=== PATIENT | male | born 1975 | race Asian ===

== ENCOUNTER 2016-11-12 20:14 | Emergency (ER) | payer MEDICAID ==
[~2016-11-12] VITALS: Ht 177.8 cm; Wt 83.9 kg
[2016-11-12 20:19] VITALS: BP 139/95; PULSE 122; RESP 20; TEMP 98.7; O2SAT 96
--- NOTE | 2016-11-12 20:25 | NUR ---
Patient to ER bed 3 to gown for evaluation. Side rails up. Report given to Jada PALUMBO.
--- NOTE | 2016-11-12 20:29 | NUR ---
Patient states that he had a fever 3 days ago, started to have swelling on the left side of neck with difficulty swallowing and pain. Swelling noted to left side of neck. Pain 10/10. Patient states its hard for him to take a deep breath. No other complaints/injuries per patient or as noted
--- NOTE | 2016-11-12 20:48 | NUR ---
ER at bedside examining patient.
[2016-11-12] MEDS ORDERED: KETOROLAC TROMETHAMINE 30 MG VIAL IVP ONE (21:00)
[2016-11-12] MEDS ORDERED: cefTRIAXone 2 GM VIAL ONE (21:00)
[2016-11-12] MEDS ORDERED: NACL 0.9% 1,000 ML IV ONE (21:00)
[2016-11-12 22:51] VITALS: BP 136/78; PULSE 86; RESP 19; TEMP 98.7; O2SAT 98
--- NOTE | 2016-11-12 22:51 | NUR ---
Patient given written and verbal discharge instructions and verbalizes understanding. ER MD discussed with patient the results and treatment provided. Patient in stable condition. ID arm band removed. IV catheter removed intact and dressing applied, no active bleeding. Rx of Naprosyn and augmentin given. Patient educated on pain management and to follow up with PMD in 2 days. Pain Scale 4/10 Opportunity for questions provided and answered.
== END 2016-11-12 22:51 | disposition home or self-care (01) ==
LOC: SED 20:14
DX: J02.9 Acute pharyngitis, unspecified (principal)
CPT/HCPCS: 96365; 96375; 99284; J0696; J1885; J7030; J7060

== ENCOUNTER 2016-11-15 04:15 | Emergency (ER) | payer MEDICAID ==
[~2016-11-15] VITALS: Ht 177.8 cm; Wt 81.6 kg
[2016-11-15 04:15] VITALS: BP_SYST 136
[2016-11-15] MEDS ORDERED: CLINDAMYCIN 900 MG in D5W 100 ML IV ONE (05:30)
[2016-11-15] MEDS ORDERED: ONDANSETRON HCL 4 MG/2 ML VIAL IVP ONE (05:30)
[2016-11-15] MEDS ORDERED: HYDROmorphone 1 MG INJ. 1 MG/ML AMPUL IVP ONE ×2 (05:30→06:15)
[2016-11-15 05:39] LABS: BASOPHILS # (AUTO) 0.1 K/uL (0.0-0.2); BASOPHILS % (AUTO) 0.5 % (0.0-2.0); EOSINOPHILS # (AUTO) 0.2 K/uL (0.0-0.4); EOSINOPHILS % (AUTO) 1.5 % (0.0-4.0); HEMATOCRIT 41.8 % (36-54); HEMOGLOBIN 13.6 g/dL (14.0-18.0); LYMPHOCYTES # (AUTO) 2.9 K/uL (1.0-5.5); LYMPHOCYTES % (AUTO) 19.7 % (20.5-51.5); MEAN CORPUSCULAR HEMOGLOBIN 27 pg (27-31); MEAN CORPUSCULAR HGB CONC 32 % (32-36); MEAN CORPUSCULAR VOLUME 83 fL (79.0-98.0); MONOCYTES # (AUTO) 1.5 K/uL (0.0-1.0); MONOCYTES % (AUTO) 10.6 % (1.7-9.3); NEUTROPHILS # (AUTO) 9.8 K/uL (1.8-7.7); NEUTROPHILS % (AUTO) 67.7 % (40.0-70.0); PLATELET COUNT (AUTO) 419 K/uL (130-430); RED BLOOD CELL COUNT(AUTO) 5.05 MIL/uL (4.2-6.2); RED CELL DISTRIBUTION WIDTH 12.1 % (9.0-15.0); WHITE BLOOD COUNT (AUTO) 14.5 K/uL (4.8-10.8)
[2016-11-15] MEDS ORDERED: CLINDAMYCIN 900 MG in D5W 50 ML IV ONE (05:45)
[2016-11-15] MEDS ORDERED: CLINDAMYCIN 900 mg/50mL D5W 50 ML IV ONE (05:45)
[2016-11-15 05:53] LABS: PROTHROMBIN TIME 9.6 SECS (9.5-12.5)
[2016-11-15 05:54] LABS: INR 0.9 (0.80-1.20)
[2016-11-15 05:56] LABS: ALBUMIN 3.2 g/dL (3.4-4.8); CALCIUM 8.6 mg/dL (8.4-11.0); CREATININE 1.1 mg/dL (0.55-1.30); POTASSIUM 3.2 mmol/L (3.5-5.1); TOTAL BILIRUBIN 0.6 mg/dL (0.0-1.0); TOTAL PROTEIN, SERUM 7.3 g/dL (6.4-8.3)
[2016-11-15] MEDS ORDERED: NACL 0.9% 1,000 ML IV ONE (06:00)
[2016-11-15] MEDS ORDERED: DEXAMETHASONE SOD PHOSPHATE 10 MG/ML VIAL IVP ONE (06:00)
[2016-11-15 07:15] VITALS: BP_SYST 136
[2016-11-15] MEDS ORDERED: NAPR-227 PO (12:38)
[2016-11-15] MEDS ORDERED: AUG875 PO (12:38)
[2016-11-15] MEDS ORDERED: PIPERACILLIN/TAZOBACTAM 3.375 GM/VIAL (ZOSYN) IV ONE (13:20)
== END 2016-11-15 07:15 | disposition home or self-care (01) ==
LOC: SED 04:15
DX: J03.90 Acute tonsillitis, unspecified (principal); J39.0 Retropharyngeal and parapharyngeal abscess; F17.200 Nicotine dependence, unspecified, uncomplicated
CPT/HCPCS: 36415; 70490; 80053; 83605; 85025; 85610; 87040; 96365; 96375; 96376; 99285; J1100; J1170; J2405; J2543; J3490; J7030

== ENCOUNTER 2016-11-15 10:57 | Inpatient (IN) | payer MEDICAID ==
[~2016-11-15] VITALS: Ht 177.8 cm; Wt 83.9 kg
[2016-11-15 10:58] VITALS: BP_SYST 109
[2016-11-15] MEDS ORDERED: NACL 0.9% 1,000 ML IV ONE (11:05)
[2016-11-15] MEDS ORDERED: IOHEXOL 100 ML IV ONE (11:28)
[2016-11-15 11:31] LABS: CALCIUM 9.1 mg/dL (8.4-11.0); POTASSIUM 4.3 mmol/L (3.5-5.1)
[2016-11-15 11:56] LABS: BASOPHILS % (AUTO) 0.2 % (0.0-2.0); EOSINOPHILS % (AUTO) 0.1 % (0.0-4.0); HEMATOCRIT 44.1 % (36-54); HEMOGLOBIN 14.3 g/dL (14.0-18.0); LYMPHOCYTES # (AUTO) 1.2 K/uL (1.0-5.5); MEAN CORPUSCULAR HEMOGLOBIN 27 pg (27-31); MEAN CORPUSCULAR HGB CONC 33 % (32-36); MEAN CORPUSCULAR VOLUME 84 fL (79.0-98.0); MONOCYTES # (AUTO) 0.2 K/uL (0.0-1.0); MONOCYTES % (AUTO) 1.3 % (1.7-9.3); NEUTROPHILS # (AUTO) 13.9 K/uL (1.8-7.7); NEUTROPHILS % (AUTO) 90.4 % (40.0-70.0); PLATELET COUNT (AUTO) 439 K/uL (130-430); RED BLOOD CELL COUNT(AUTO) 5.25 MIL/uL (4.2-6.2); RED CELL DISTRIBUTION WIDTH 12.2 % (9.0-15.0); WHITE BLOOD COUNT (AUTO) 15.3 K/uL (4.8-10.8)
[2016-11-15] MEDS ORDERED: PIPERACILLIN/TAZO 3.375 GM in NS 50 ML IV ONE (12:15)
[2016-11-15] MEDS ORDERED: CLINDAMYCIN 600 mg/50mL D5W 50 ML IV ONE (12:15)
[2016-11-15] MEDS ORDERED: AUG875 PO (12:38)
[2016-11-15] MEDS ORDERED: NAPR-227 PO (12:38)
[2016-11-15] MEDS ORDERED: PIPERACILLIN/TAZOBACTAM 3.375 GM/VIAL (ZOSYN) IV ONE (13:08)
[2016-11-15] MEDS ORDERED: ONDANSETRON HCL 4 MG/2 ML VIAL IVP ONE (13:45)
[2016-11-15 14:02] VITALS: BP_SYST 117
[2016-11-15] MEDS ORDERED: ACETAMINOPHEN 325 MG TABLET PO PRN (14:15)
[2016-11-15] MEDS ORDERED: KETOROLAC TROMETHAMINE 15 MG VIAL IVP PRN (14:15)
[2016-11-15 14:17] VITALS: BP_SYST 117
[2016-11-15] MEDS ORDERED: ACETAMINOPHEN/CODEINE 300 MG-30 MG TABLET PO PRN (14:30)
[2016-11-15] MEDS ORDERED: AMPICILLIN SODIUM/SULBACTAM NA 3 GM in NS 100 ML IV SCH (18:00)
[2016-11-15] MEDS ORDERED: LACTOBACILLUS RHAMNOSUS GG 1 CAP CAPSULE PO SCH (21:00)
== END 2016-11-15 17:26 | disposition left against medical advice (07) | DRG 720 ==
LOC: SED 10:57 → STU 13:18
PROVIDERS: ADMIT Internal Medicine; ATTEND Internal Medicine
DX: A41.9 Sepsis, unspecified organism (principal); R13.10 Dysphagia, unspecified; J39.0 Retropharyngeal and parapharyngeal abscess; Z53.21 Procedure and treatment not carried out due to patient leaving prior to being seen by health care provider
CPT/HCPCS: 36415; 70491-TC; 80048; 83605; 85025; 87040-TC; 96361; 96365; 96367; 96375; 99285; J0295; J2405; J2543; J3490; J7030; J7050; Q9967